=== PATIENT | male | born 1935 | race Caucasian/White ===

== ENCOUNTER → 2018-04-17 | Outpatient (CLI) | payer OTHER | LOC: BHLMT 14:00 | PROVIDERS: ATTEND Internal Medicine | DX: I05.9 Rheumatic mitral valve disease, unspecified (principal); I10 Essential (primary) hypertension | CPT/HCPCS: 93306-PO ==

== ENCOUNTER → 2018-11-27 | Outpatient (CLI) | payer OTHER | LOC: FIMAGING 08:07 ==